=== PATIENT | female | born 2000 | race Caucasian/White ===

== ENCOUNTER 2023-08-02 13:28 | Outpatient (REF) | payer OTHER, SELFPAY ==
--- NOTE | ~2023-08-02 | FL_ITS ---
Right hip arthrogram Indications: Right hip pain. Intra-articular gadolinium injection is needed prior to MRI. Procedure: Risks and benefits and possible complications were discussed with the patient and the consent form was signed. The patient was placed supine on the fluoroscopy table. The right hip was prepped and draped in normal sterile fashion. 1% buffered lidocaine was used for anesthesia. A 22-gauge spinal needle was used to access the hip joint. Intra-articular position of the needle within the hip joint was verified using 3 cc of Omnipaque 300. A total of 12 mL of gadolinium/saline (1:200) contrast mixture was then injected into the hip joint. The needle was then removed and a Band-Aid was applied to the injection site. The patient tolerated the procedure well and was sent for to MRI. There were no immediate complications. FL/FL arthrogram hip RT Impression: Fluoroscopic right hip arthrogram The procedure was performed by Allen Ha PA-C, and directly supervised by Dr. Jean.
--- NOTE | ~2023-08-02 | MR_ITS ---
EXAMINATION: MR HIP WITH CONTRAST, RIGHT CLINICAL INFORMATION: Right hip pain COMPARISON: None available. TECHNIQUE: MRI of the right hip was performed after the intra-articular administration of a dilute gadolinium-containing solution on a high-field scanner. FINDINGS: No evidence of a labral tear. No focal articular cartilage defect or loose body. The alpha angle which is measured in the axial plane is within normal limits, approximately 43 degrees. However, there is a bony protuberance at the superolateral femoral head and neck junction which is a potential source of cam-type impingement. No muscle strain or tear. No stress reaction, fracture, or evidence of avascular necrosis. MR/MR hip RT w con IMPRESSION: Bony protuberance at the superolateral femoral head and neck junction which is a potential source of cam-type impingement. No evidence of a labral tear.
[2023-08-02] MEDS: gadobutroL 2 ML VIAL IVPUSH (14:30)
== END 2023-08-02 13:29 | disposition home or self-care (01) ==
LOC: HO.XRAY 13:28
PROVIDERS: Visit Provider Family Medicine Sports Medicine
DX: M25.551 Pain in right hip (principal)
CPT/HCPCS: 27093; 73525; 73722; A9585

== ENCOUNTER → 2023-08-02 13:41 | Outpatient (BNV) | payer OTHER, SELFPAY | PROVIDERS: Visit Provider Radiology Vascular & Interventional Radiology | DX: M25.551 Pain in right hip (principal) | CPT/HCPCS: 27093; 73525 ==